=== PATIENT | female | born 1970 | race Two or more races ===

== ENCOUNTER → 2025-05-18 | Emergency (ER) | payer OTHER ==
[~2025-05-18] VITALS: Ht 160 cm; Wt 68.0 kg
[~2025-05-18] MED LIST: KETOROLAC TROMETHAMINE 30 MG VIAL IU ONE; METOCLOPRAMIDE HCL 5 MG/ML VIAL IV ONE; NEURONTIN300 MG PO
== END | disposition home or self-care (01) ==
LOC: ER 12:45
DX: G44.82 Headache associated with sexual activity (principal)

== ENCOUNTER → 2025-06-07 | Emergency (ER) | payer OTHER ==
[~2025-06-07] VITALS: Ht 160 cm; Wt 68.0 kg
[~2025-06-07] MED LIST changes: +AMOX-CLAV 875-1 EACH PO; +CEFTRIAXONE SODIUM 1,000 MG VIAL IM STA; +CEFTRIAXONE SODIUM 1,000 MG VIAL ONE; +DEXAMETHASONE SODIUM PHOSPHATE 4 MG/ML VIAL IM STA; +DEXAMETHASONE SODIUM PHOSPHATE 4 MG/ML VIAL ONE; +KETOROLAC TROMETHAMINE 30 MG VIAL IM STA; -KETOROLAC TROMETHAMINE 30 MG VIAL IU ONE; +KETOROLAC TROMETHAMINE 30 MG VIAL ONE; -METOCLOPRAMIDE HCL 5 MG/ML VIAL IV ONE; +[UNRECOGNIZED DRUG - OTHER] PO
[2025-06-07 06:25] VITALS: BP 125/75; O2SAT 95
[2025-06-07 08:34] LABS: BASO % 0.2 % (0.1-1.2); EOS # 0.02 (0.04-0.54); EOS % 0.4 % (0.7-7.0); LYMPH # 2.67 (1.18-3.74); LYMPH % 56.6 % (19.3-53.1); MEAN PLATELET VOLUME 9.60 fl (9.4-12.4); MONO # 0.34 (0.24-0.82); MONO % 7.2 % (4.7-12.5); NEUT # 1.68 (1.56-6.13); NEUT % 35.6 % (34.0-71.1); RED CELL DISTRIBUTION WIDTH 11.9 % (11.6-14.4)
[2025-06-07 08:59] LABS: COVID-19 AG NEGATIVE (NEGATIVE)
[2025-06-07 09:15] LABS: ALT/SGPT 34.0 U/L (12-78); AST/SGOT 32.0 U/L (15-37); BILIRUBIN TOTAL 0.32 mg/dL (0.3-1.2); BUN CREA RATIO 12.0 (7.0-25.0); CREATININE SERUM 0.68 mg/dL (0.55-1.02); GFR 89.83; GLOBULINA 4.0 G/DL (2.4-3.5); GLUCOSE FASTING 177.0 mg/dL (65-100); OSMOLALITY SERUM 278.0 MOSM/KG (275-295)
== END | disposition home or self-care (01) ==
LOC: ER 06:11
PROVIDERS: General Practice
DX: R05.8 Other specified cough (principal); M79.605 Pain in left leg; M79.604 Pain in right leg; Z20.822 Contact with and (suspected) exposure to COVID-19